=== PATIENT | male | born 1975 | race American Indian/Alaskan Native ===

== ENCOUNTER 2017-09-11 21:58 | Emergency (ER) | payer MEDICAID ==
[2017-09-11] MEDS ORDERED: predniSONE 20 MG Tab PO ONE (22:18)
[2017-09-11] MEDS ORDERED: Azithromycin 250 MG Tab PO ONE (22:18)
--- NOTE | 2017-09-11 22:20 | EDM.PDOC ---
ED HPI GENERAL MEDICAL PROBLEM - General Chief Complaint: ENT Problem Stated Complaint: SINUSES, NECK PAIN AND COUGH [id number] Time Seen by Provider: 09/11/17 22:18 Source of Information: Reports: Patient History Limitations: Reports: No Limitations - History of Present Illness INITIAL COMMENTS - FREE TEXT/NARRATIVE: 3 days h/o sore throat cough head congestion - Related Data Allergies Allergy/AdvReac Type Severity Reaction Status Date / Time Penicillins Allergy Mild Hives Verified 09/11/17 22:08 Home Meds: Home Meds carBAMazepine [TEGretol Tab] 200 mg PO BID 08/05/13 [History] Metoprolol Tartrate 25 mg PO DAILY 06/20/14 [History] Past Medical History - Past Health History Medical/Surgical History: Denies Medical/Surgical History Cardiovascular History: Reports: Hypertension Respiratory History: Reports: Asthma Musculoskeletal History: Reports: Fracture Neurological History: Reports: Cerebral Palsy Endocrine/Metabolic History: Reports: Obesity/BMI 30+ - Past Surgical History Musculoskeletal Surgical History: Reports: Other (See Below) Social & Family History - Family History Family Medical History: Noncontributory - Tobacco Use Smoking Status *Q: Never Smoker Second Hand Smoke Exposure: No - Caffeine Use Caffeine Use: Reports: Coffee, Soda - Alcohol Use Days Per Week of Alcohol Use: 1 Number of Drinks Per Day: 1 Total Drinks Per Week: 1 - Recreational Drug Use Recreational Drug Use: No - Living Situation & Occupation Living situation: Reports: with Family ED ROS ENT - Review of Systems Review Of Systems: ROS reveals no pertinent complaints other than HPI. ED EXAM, ENT - Physical Exam Exam: See Below Exam Limited By: No Limitations General Appearance: Alert, WD/WN, Mild Distress, Other (discomfort) Ears: Normal External Exam, Normal Canal, Hearing Grossly Normal, TM Dullness Nose: Nasal Swelling Mouth/Throat: Pharyngeal Erythema Head: Atraumatic Neck: Non-Tender, Full Range of Motion Respiratory/Chest: No Respiratory Distress, No Accessory Muscle Use, Rhonchi. No: Decreased Breath Sounds Cardiovascular: Regular Rate, Rhythm GI/Abdominal: Soft, Non-Tender Neurological: Alert, Oriented, Normal Cognition, Normal Gait, No Motor/Sensory Deficits Psychiatric: Normal Affect, Normal Mood Skin: Warm, Dry, Normal Color Lymphatic: No Adenopathy Course - Vital Signs Last Recorded V/S: Last Vital Signs Temp 37.1 C 09/11/17 22:05 Pulse 94 03/18/18 22:05 Resp 16 09/11/17 22:05 BP 165/109 H 09/11/17 22:05 Pulse Ox 96 09/11/17 22:05 - Orders/Labs/Meds Orders: Active Orders 24 hr Category Date Time Status CULTURE STREP A CONFIRMATION [RM] Stat Lab 09/11/17 22:17 Results STREP SCRN A RAPID W CULT CONF [RM] Stat Lab 09/11/17 22:17 Results Meds: Medications Discontinued Medications Generic Name Dose Route Start Last Admin Trade Name Tiffany PRN Reason Stop Dose Admin Azithromycin 500 mg 09/11/17 22:18 09/11/17 22:27 Zithromax PO 09/11/17 22:19 500 mg ONETIME ONE Administration Prednisone 20 mg 09/11/17 22:18 09/11/17 22:26 Prednisone PO 09/11/17 22:19 20 mg ONETIME ONE Administration - Re-Assessments/Exams Free Text/Narrative Re-Assessment/Exam: 09/11/17 22:39 results discussed with pt Departure - Departure Time of Disposition: 22:39 Disposition: Home, Self-Care 01 Condition: Good Clinical Impression: Tonsillitis, Sinusitis chronic, frontal - Discharge Information Instructions: Sinusitis, Adult, [id number] Forms: ED Department Discharge Additional Instructions: 1) rest 2) don't sleep flat at night 3) drink lots of liquids 4) follow up at clinic rx given; z-anuj medrol dospak - My Orders Last 24 Hours: My Active Orders 09/11/17 22:17 CULTURE STREP A CONFIRMATION [RM] Stat STREP SCRN A RAPID W CULT CONF [RM] Stat - Assessment/Plan Last 24 Hours: My Active Orders 09/11/17 22:17 CULTURE STREP A CONFIRMATION [RM] Stat STREP SCRN A RAPID W CULT CONF [RM] Stat
[2017-09-11 22:41] VITALS: BP 155/107
== END 2017-09-11 22:45 | disposition home or self-care (01) ==
LOC: DL.ED 21:58
DX: J03.90 Acute tonsillitis, unspecified (principal); J32.1 Chronic frontal sinusitis; I10 Essential (primary) hypertension; Z88.0 Allergy status to penicillin; Z79.899 Other long term (current) drug therapy
CPT/HCPCS: 87081; 87430; 99283; A9270

== ENCOUNTER 2017-10-04 20:25 | Emergency (ER) | payer MEDICAID, OTHER ==
[2017-10-04] MEDS ORDERED: Ibuprofen 800 MG Tab PO ONE (20:26)
[2017-10-04] MEDS ORDERED: Colchicine 0.6 MG Tab PO ONE ×2 (20:26→21:33)
[2017-10-04 20:39] VITALS: BP 164/97
--- NOTE | 2017-10-04 20:48 | EDM.PDOC ---
ED HPI GENERAL MEDICAL PROBLEM - General Chief Complaint: Lower Extremity Injury/Pain Stated Complaint: [id number] knee swollen Time Seen by Provider: 10/04/17 20:40 Source of Information: Reports: Patient, RN, RN Notes Reviewed History Limitations: Reports: No Limitations - History of Present Illness INITIAL COMMENTS - FREE TEXT/NARRATIVE: Pt presents to the ER with c/o right knee pain. He states about 1 week ago he fell on the ice and landed on both knees. For the past few days his knee has increasingly gotten more painful and swollen. He rates the pain 10/10 and states it is difficult to stand on the leg. Patient states the right leg is much larger than the left leg due to his Cerebral Palsy. Patient admits to gout in the past. Pt states he has been using ibuprofen but it is not helping much yet. 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 Right Knee Pain Score (Numeric/FACES): 10 - Related Data Allergies Allergy/AdvReac Type Severity Reaction Status Date / Time Penicillins Allergy Mild Hives Verified 10/04/17 20:38 Home Meds: Home Meds carBAMazepine [TEGretol Tab] 200 mg PO BID 08/05/13 [History] Metoprolol Tartrate 25 mg PO DAILY 06/20/14 [History] Past Medical History - Past Health History Medical/Surgical History: Denies Medical/Surgical History Cardiovascular History: Reports: Hypertension Respiratory History: Reports: Asthma Musculoskeletal History: Reports: Fracture Neurological History: Reports: Cerebral Palsy Endocrine/Metabolic History: Reports: Obesity/BMI 30+ - Past Surgical History Musculoskeletal Surgical History: Reports: Other (See Below) Social & Family History - Family History Family Medical History: Noncontributory - Tobacco Use Smoking Status *Q: Never Smoker Second Hand Smoke Exposure: No - Caffeine Use Caffeine Use: Reports: Coffee, Soda, Tea - Alcohol Use Days Per Week of Alcohol Use: 1 Number of Drinks Per Day: 1 Total Drinks Per Week: 1 - Recreational Drug Use Recreational Drug Use: No - Living Situation & Occupation Living situation: Reports: with Family Review of Systems - Review of Systems Review Of Systems: ROS reveals no pertinent complaints other than HPI. ED EXAM, GENERAL - Physical Exam Exam: See Below Exam Limited By: No Limitations General Appearance: Alert, WD/WN, No Apparent Distress Eye Exam: Bilateral Eye: EOMI, Normal Inspection Ears: Normal External Exam, Hearing Grossly Normal Nose: Normal Inspection Throat/Mouth: Normal Inspection, Normal Voice, No Airway Compromise Head: Atraumatic, Normocephalic Neck: Normal Inspection, Supple, Non-Tender, Full Range of Motion Respiratory/Chest: No Respiratory Distress, Lungs Clear, Normal Breath Sounds, No Accessory Muscle Use, Chest Non-Tender Cardiovascular: Normal Peripheral Pulses, Regular Rate, Rhythm, No Edema, No Gallop, No JVD, No Murmur, No Rub Peripheral Pulses: 2+: Radial (L), Radial (R), Dorsalis Pedis (L), Dorsalis Pedis (R) GI/Abdominal: Normal Bowel Sounds, Soft, Non-Tender, No Organomegaly, No Distention, No Abnormal Bruit, No Mass (Male) Exam: Deferred Rectal (Males) Exam: Deferred Back Exam: Normal Inspection, Full Range of Motion, NT Extremities: No Pedal Edema, Normal Capillary Refill, Leg Pain (right knee), Limited Range of Motion (right knee), Increased Warmth (right knee), Other ( left leg much smaller, pt states he has CP) Neurological: Alert, Oriented, CN II-XII Intact, Normal Cognition, Normal Gait, Normal Reflexes, No Motor/Sensory Deficits Psychiatric: Normal Affect, Normal Mood Skin Exam: Warm, Dry, Intact, Normal Color, No Rash, Increased Warmth (right knee) Lymphatic: No Adenopathy Course - Vital Signs Last Recorded V/S: Last Vital Signs Temp 98.1 F 10/04/17 20:28 Pulse 86 10/04/17 20:28 Resp 18 10/04/17 20:28 BP 164/97 H 10/04/17 20:28 Pulse Ox 96 10/04/17 20:28 - Orders/Labs/Meds Labs: Laboratory Tests 10/04/17 10/04/17 10/04/17 Range/Units 20:53 20:53 20:53 WBC 8.8 (5.0-10.0) 10^3/uL RBC 4.44 L (4.6-6.2) 10^6/uL Hgb 13.8 L (14.0-18.0) g/dL Hct 41.6 (40.0-54.0) % MCV 93.7 D (80-100) fL MCH 31.1 (27.0-34.0) pg MCHC 33.2 (33.0-35.0) g/dL Plt Count 217 (150-450) 10^3/uL Neut % (Auto) 60.6 (42.2-75.2) % Lymph % (Auto) 25.5 (20.5-50.1) % Whitley % (Auto) 10.4 H (2-8) % Eos % (Auto) 3.3 H (1.0-3.0) % Baso % (Auto) 0.2 (0.0-1.0) % ESR 16 H (0-15) mm/hr Sodium 136 (135-145) mmol/L Potassium 4.1 (3.6-5.0) mmol/L Chloride 102 (101-111) mmol/L Carbon Dioxide 28.0 (21.0-31.0) mmol/L Anion Gap 10.1 BUN 14 (7-18) mg/dL Creatinine 0.9 (0.6-1.3) mg/dL Est Cr Clr Drug Dosing 102.01 mL/min Estimated GFR (MDRD) > 60 BUN/Creatinine Ratio 15.55 Glucose 149 H (74-105) mg/dL Uric Acid (2.6-7.2) mg/dL Calcium 8.5 (8.4-10.2) mg/dl Total Bilirubin 0.6 (0.2-1.0) mg/dL AST 20 (10-42) IU/L ALT 22 (10-60) IU/L Alkaline Phosphatase 72 (42-121) IU/L C-Reactive Protein 7.1 H (0.0-1.3) mg/dL Total Protein 7.2 (6.7-8.2) g/dl Albumin 3.7 (3.2-5.5) g/dl Globulin 3.5 Albumin/Globulin Ratio 1.06 /04/13 Range/Units 20:53 WBC (5.0-10.0) 10^3/uL RBC (4.6-6.2) 10^6/uL Hgb (14.0-18.0) g/dL Hct (40.0-54.0) % MCV (80-100) fL MCH (27.0-34.0) pg MCHC (33.0-35.0) g/dL Plt Count (150-450) 10^3/uL Neut % (Auto) (42.2-75.2) % Lymph % (Auto) (20.5-50.1) % Whitley % (Auto) (2-8) % Eos % (Auto) (1.0-3.0) % Baso % (Auto) (0.0-1.0) % ESR (0-15) mm/hr Sodium (135-145) mmol/L Potassium (3.6-5.0) mmol/L Chloride (101-111) mmol/L Carbon Dioxide (21.0-31.0) mmol/L Anion Gap BUN (7-18) mg/dL Creatinine (0.6-1.3) mg/dL Est Cr Clr Drug Dosing mL/min Estimated GFR (MDRD) BUN/Creatinine Ratio Glucose (74-105) mg/dL Uric Acid 7.6 H (2.6-7.2) mg/dL Calcium (8.4-10.2) mg/dl Total Bilirubin (0.2-1.0) mg/dL AST (10-42) IU/L ALT (10-60) IU/L Alkaline Phosphatase (42-121) IU/L C-Reactive Protein (0.0-1.3) mg/dL Total Protein (6.7-8.2) g/dl Albumin (3.2-5.5) g/dl Globulin Albumin/Globulin Ratio Meds: Medications Discontinued Medications Generic Name Dose Route Start Last Admin Trade Name Tiffany PRN Reason Stop Dose Admin Colchicine 1.2 mg 10/04/17 21:33 10/04/17 21:41 Colcrys PO 10/04/17 21:34 1.2 mg ONETIME ONE Administration Colchicine Confirm 10/04/17 21:49 Colcrys Administered 10/04/17 21:50 Dose 0.6 mg .ROUTE .STK-MED ONE Ibuprofen Confirm 10/04/17 21:48 Motrin Administered 10/04/17 21:49 Dose 1,600 mg .ROUTE .STK-MED ONE Prednisone 30 mg 10/04/17 21:34 10/04/17 21:41 Prednisone PO 10/04/17 21:35 30 mg ONETIME ONE Administration - Radiology Interpretation Free Text/Narrative:: Right knee xray: IMPRESSION: 1. Lucency through the right aspect of the patella seen best on the sunrise view represents a nondisplaced fracture. No dislocation. 2. Moderate suprapatellar joint effusion. Thank you for allowing us to participate in the care of your patient. Dictated and Authenticated by: Rakesh Alan MD 10/04/2017 9:23 PM Central Time ([place] & [place]) See rad report Departure - Departure Time of Disposition: 21:47 Disposition: Home, Self-Care 01 Condition: Fair Clinical Impression: Effusion, right knee Patellar fracture Qualifiers: Encounter type: initial encounter Fracture type: closed Fracture morphology: unspecified fracture morphology Fracture alignment: nondisplaced Laterality: right Qualified Code(s): S82.001A - Unspecified fracture of right patella, initial encounter for closed fracture Gout Qualifiers: Gout site: toe Gout etiology: unspecified cause Chronicity: acute Laterality: right Qualified Code(s): M10.9 - Gout, unspecified - Discharge Information Instructions: Knee Effusion, [id number], Gout, Dejz-ul-Xppo, Cast or Splint Care, Adult, Yrqy-vs-Ryef Referrals: Benjamin Maxwell [Primary Care Provider] - Forms: ED Department Discharge Additional Instructions: RX: Diclofenac, Prednisone, Colchicine Follow up with ortho in [place] tomorrow, or your primary care facility
[2017-10-04 21:16] LABS: CHLORIDE,CL 102 mmol/L (101-111); SODIUM,NA 136 mmol/L (135-145)
[2017-10-04] MEDS ORDERED: predniSONE 10 MG Tab PO ONE (21:34)
[2017-10-04] MEDS ORDERED: Ibuprofen 800 MG Tab ONE (21:48)
[2017-10-04] MEDS ORDERED: Colchicine 0.6 MG Tab ONE (21:49)
== END 2017-10-04 21:59 | disposition home or self-care (01) ==
LOC: DL.ED 20:25
DX: S82.001A Unspecified fracture of right patella, initial encounter for closed fracture (principal); M10.9 Gout, unspecified; I10 Essential (primary) hypertension; E66.9 Obesity, unspecified; J45.909 Unspecified asthma, uncomplicated; Z88.0 Allergy status to penicillin; Z79.899 Other long term (current) drug therapy; W00.0XXA Fall on same level due to ice and snow, initial encounter
CPT/HCPCS: 36415; 73562; 80053; 84550; 85025; 85651; 86140; 99283; A9270

== ENCOUNTER 2019-03-14 19:33 | Emergency (ER) | payer MEDICAID ==
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
[2019-03-14 20:19] VITALS: BP 147/91; PULSE 84
== END 2019-03-14 21:32 | disposition home or self-care (01) ==
LOC: DL.ED 19:33
DX: S22.32XA Fracture of one rib, left side, initial encounter for closed fracture (principal); E66.9 Obesity, unspecified; Z88.0 Allergy status to penicillin; W22.8XXA Striking against or struck by other objects, initial encounter
CPT/HCPCS: 71101-LT; 99283-25

== ENCOUNTER 2020-01-09 20:22 | Emergency (ER) | payer MEDICAID ==
[2020-01-09 20:55] VITALS: BP 149/104; PULSE 117
--- NOTE | 2020-01-09 21:02 | EDM.PDOC ---
ED HPI GENERAL MEDICAL PROBLEM - General Chief Complaint: Respiratory Problem Stated Complaint: AMBULANCE +COVID SOB Time Seen by Provider: 01/09/20 20:23 Source of Information: Reports: Patient, EMS, RN Notes Reviewed History Limitations: Reports: No Limitations - History of Present Illness INITIAL COMMENTS - FREE TEXT/NARRATIVE: ED with c/o increased breathing difficulty. Known COVID for one week. Multiple family members in household also positive with minimal symptoms. Patient hx of asthma, htn NIDDM. Woke this am SOB progressing through day. Looked in mirror tonight an thought lips looked blue. EMS reported initial oxygen 76 on room air. Upper 80's on 6L hi flow cannula on arrival. 15L NRB only increase to low 90's. Has experienced nausea and diarrhea, initial sore throat Cough productive at times white phlegm. 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 - Related Data Allergies Allergy/AdvReac Type Severity Reaction Status Date / Time Penicillins Allergy Mild Hives Verified 03/14/19 20:08 Home Meds: Home Meds carBAMazepine [TEGretol Tab] 200 mg PO BID 08/05/13 [History] Metoprolol Tartrate 25 mg PO DAILY 06/20/14 [History] Past Medical History - Past Health History Medical/Surgical History: Denies Medical/Surgical History Cardiovascular History: Reports: Hypertension Respiratory History: Reports: Asthma Musculoskeletal History: Reports: Fracture Neurological History: Reports: Cerebral Palsy Endocrine/Metabolic History: Reports: Obesity/BMI 30+ - Past Surgical History Musculoskeletal Surgical History: Reports: Other (See Below) Social & Family History - Family History Family Medical History: Noncontributory - Caffeine Use Caffeine Use: Reports: Coffee, Soda, Tea - Living Situation & Occupation Living situation: Reports: with Family ED ROS GENERAL - Review of Systems Review Of Systems: See Below Constitutional: Reports: Fever, Chills, Malaise, Decreased Appetite HEENT: Reports: Glasses, Throat Pain Respiratory: Reports: Shortness of Breath, Cough, Sputum Cardiovascular: Reports: Dyspnea on Exertion Endocrine: Reports: No Symptoms GI/Abdominal: Reports: Diarrhea, Decreased Appetite Musculoskeletal: Reports: Other (generalized aches) Skin: Reports: No Symptoms Psychiatric: Reports: No Symptoms ED EXAM, GENERAL - Physical Exam Exam: See Below Exam Limited By: No Limitations General Appearance: Alert, Moderate Distress Eye Exam: Bilateral Eye: EOMI Ears: Normal External Exam, Hearing Grossly Normal, Normal TMs Nose: Normal Inspection Throat/Mouth: Other (dry mucus membranes) Head: Atraumatic, Normocephalic Respiratory/Chest: Respiratory Distress, Decreased Breath Sounds, Crackles (upper). No: Wheezing Cardiovascular: Normal Peripheral Pulses, Regular Rate, Rhythm, Tachycardia GI/Abdominal: Normal Bowel Sounds, Soft Extremities: Normal Inspection Neurological: Alert, Oriented, Normal Cognition Psychiatric: Normal Affect, Normal Mood, Anxious Skin Exam: Warm, Diaphoretic, Pallor Course - Vital Signs Last Recorded V/S: Last Vital Signs Temp 97.6 F 01/09/20 20:46 Pulse 117 H 01/09/20 20:46 Resp 34 H 01/09/20 20:46 BP 149/104 H 01/09/20 20:46 Pulse Ox 92 L 01/09/20 20:46 - Orders/Labs/Meds Labs: Laboratory Tests 01/09/20 01/09/20 01/09/20 Range/Units 20:39 20:39 20:39 WBC 9.1 (5.0-10.0) 10^3/uL RBC 6.10 (4.6-6.2) 10^6/uL Hgb 18.3 H D (14.0-18.0) g/dL Hct 55.7 H (40.0-54.0) % MCV 91.3 (80-100) fL MCH 30.0 (27.0-34.0) pg MCHC 32.9 L (33.0-35.0) g/dL Plt Count 184 (150-450) 10^3/uL Neut % (Auto) 72.1 (42.2-75.2) % Lymph % (Auto) 12.3 L (20.5-50.1) % Miner % (Auto) 15.4 H (2-8) % Eos % (Auto) 0.0 L (1.0-3.0) % Baso % (Auto) 0.2 (0.0-1.0) % D-Dimer, Quantitative 526 H (0-400) ng/mL ABG pH (7.35-7.45) ABG pCO2 (35-45) mmHg ABG pO2 (70-100) mmHg ABG HCO3 (22-26) mmol/L ABG O2 Saturation (95-100) % ABG Base Excess ((-2)-(+3)) mmol/L Dedrick Test O2 Delivery Device Oxygen Flow Rate Sodium 141 (136-145) mmol/L Potassium 3.4 L (3.5-5.1) mmol/L Chloride 99 (98-107) mmol/L Carbon Dioxide 32 (21-32) mmol/L Anion Gap 13.4 H (7-13) mEq/L BUN 19 H (7-18) mg/dL Creatinine 1.71 H (0.70-1.30) mg/dL Est Cr Clr Drug Dosing TNP Estimated GFR (MDRD) 44 BUN/Creatinine Ratio 11.1 (No establ ref range) Glucose 170 H (74-99) mg/dL Lactic Acid (0.4-2.0) mmol/L Calcium 8.0 L (8.5-10.1) mg/dL Total Bilirubin 0.7 (0.2-1.0) mg/dL AST 119 H (15-37) U/L ALT 57 (16-63) U/L Alkaline Phosphatase 120 H (46-116) U/L Troponin I < 0.017 (0.000-0.056) ng/mL C-Reactive Protein 45.2 H (0.0-0.9) mg/dL Total Protein 8.1 (6.4-8.2) g/dL Albumin 3.0 L (3.4-5.0) g/dL Globulin 5.1 Albumin/Globulin Ratio 0.59 Amylase 34 (25-115) U/L Lipase 157 (73-393) U/L 01/09/20 01/09/20 Range/Units 20:39 21:10 WBC (5.0-10.0) 10^3/uL RBC (4.6-6.2) 10^6/uL Hgb (14.0-18.0) g/dL Hct (40.0-54.0) % MCV (80-100) fL MCH (27.0-34.0) pg MCHC (33.0-35.0) g/dL Plt Count (150-450) 10^3/uL Neut % (Auto) (42.2-75.2) % Lymph % (Auto) (20.5-50.1) % Miner % (Auto) (2-8) % Eos % (Auto) (1.0-3.0) % Baso % (Auto) (0.0-1.0) % D-Dimer, Quantitative (0-400) ng/mL ABG pH 7.36 (7.35-7.45) ABG pCO2 54 H (35-45) mmHg ABG pO2 65 L (70-100) mmHg ABG HCO3 29.4 H (22-26) mmol/L ABG O2 Saturation 87 L (95-100) % ABG Base Excess 3 ((-2)-(+3)) mmol/L Dedrick Test pos O2 Delivery Device Non rebr mask Oxygen Flow Rate 15 Sodium (136-145) mmol/L Potassium (3.5-5.1) mmol/L Chloride (98-107) mmol/L Carbon Dioxide (21-32) mmol/L Anion Gap (7-13) mEq/L BUN (7-18) mg/dL Creatinine (0.70-1.30) mg/dL Est Cr Clr Drug Dosing Estimated GFR (MDRD) BUN/Creatinine Ratio (No establ ref range) Glucose (74-99) mg/dL Lactic Acid 2.7 H* (0.4-2.0) mmol/L Calcium (8.5-10.1) mg/dL Total Bilirubin (0.2-1.0) mg/dL AST (15-37) U/L ALT (16-63) U/L Alkaline Phosphatase (46-116) U/L Troponin I (0.000-0.056) ng/mL C-Reactive Protein (0.0-0.9) mg/dL Total Protein (6.4-8.2) g/dL Albumin (3.4-5.0) g/dL Globulin Albumin/Globulin Ratio Amylase (25-115) U/L Lipase (73-393) U/L Meds: Medications Discontinued Medications Generic Name Dose Route Start Last Admin Trade Name Freq PRN Reason Stop Dose Admin Sodium Chloride 1,000 mls @ 125 mls/hr 01/09/20 21:01 01/09/20 21:35 Normal Saline IV 01/10/20 05:00 125 mls/hr .BOLUS ONE Administration - Re-Assessments/Exams Free Text/Narrative Re-Assessment/Exam: 01/11/20 21:[address] Scarlett [facility] accepting tx via [facility] Departure - Departure Time of Disposition: 22:20 Disposition: DC/Tfer to Acute Hospital 02 Condition: Poor Clinical Impression: COVID-19, Hypokalemia, Hypoxia - Discharge Information Referrals: PCP,Unobtain [Primary Care Provider] - Forms: ED Department Discharge Sepsis Event Note (ED) - Evaluation Sepsis Screening Result: Possible Sepsis Risk
[2020-01-09 21:11] LABS: BASE EXCESS ARTERIAL 3 mmol/L ((-2)-(+3)); BICARBONATE,ARTERIAL 29.4 mmol/L (22-26); O2 DELIVERY DEVICE NON REBR MASK; O2 SATURATION ARTERIAL 87 % (95-100); PCO2 ARTERIAL 54 mmHg (35-45); PO2 ARTERIAL 65 mmHg (70-100)
[2020-01-09 21:13] LABS: ANION GAP 13.4 mEq/L (7-13); CHLORIDE,CL 99 mmol/L (98-107); SODIUM,NA 141 mmol/L (136-145)
[2020-01-09 21:15] LABS: ALLEN TEST pos; O2 FLOW RATE 15
[2020-01-09] MEDS: Sodium Chloride 0.9% 1,000 ML IV ONE (21:35)
--- NOTE | 2020-01-09 22:16 | CR ---
PROCEDURE INFORMATION: Exam: XR Chest, 1 View Exam date and time: 01/09/2020 10:00 PM Age: 44 years old Clinical indication: Shortness of breath; Additional info: Covid TECHNIQUE: Imaging protocol: XR of the chest Views: 1 view. COMPARISON: CR Ribs 2V w Chest Lt 03/14/2019 7:46 PM FINDINGS: Lungs: Mixed interstitial and airspace infiltrates noted throughout both lung wong. Suspect CHF with interstitial and airspace pulmonary edema. Coexistent multifocal pneumonia may also be present. Pleural space: Unremarkable. No pleural effusion. No pneumothorax. Heart/Mediastinum: Heart leads noted over chest. Cardiomegaly with LV dilatation. Bones/joints: Unremarkable. Soft tissues: These infiltrates and cardiomegaly are new compared to a chest from March 14, 2019. CT of the chest may provide additional detail. Other findings: Poor inspiration IMPRESSION: 1. Cardiomegaly with LV dilatation. 2. Widespread mixed interstitial and airspace infiltrates in both lungs. 3. These infiltrates and cardiomegaly are new compared to a chest from March 14, 2019. 4. Suspect CHF with interstitial and airspace pulmonary edema. 5. Coexistent multifocal pneumonia may also be present. Possible COVID [address] of the chest may provide additional detail.
== END 2020-01-09 22:18 ==
LOC: DL.ED 20:22
DX: U07.1 COVID-19 (principal); E87.6 Hypokalemia; R09.02 Hypoxemia; R00.0 Tachycardia, unspecified; I10 Essential (primary) hypertension; E66.9 Obesity, unspecified; Z88.0 Allergy status to penicillin; Z79.899 Other long term (current) drug therapy
CPT/HCPCS: 36415; 36600; 71045; 80053; 82150; 82803; 83605; 83690; 84484; 85025; 85379; 86140; 87040; 96360; 99285; J7030; 99284